=== PATIENT | female | born 1945 | race African-American/Black ===

== ENCOUNTER 2017-12-16 09:39 | Outpatient (CLI) | payer MEDICARE ==
--- NOTE | 2017-12-16 11:08 | Mammography Report ---
BILATERAL MAMMOGRAM: FINDINGS: The breast tissue is heterogeneously dense, which could obscure detection of small masses (approximately 50%-75% glandular). No mass, distortion, suspicious calcification, or skin change is seen. No significant change when compared to exams dating back to November 2015. CAD was utilized. IMPRESSION: Negative mammogram. There is no mammographic evidence of malignancy. RECOMMENDATION: Follow-up per ACS guidelines. BI-RADS CATEGORY: 1 = Negative ACR BI-RADS MAMMOGRAPHIC CODES: 0 = Needs additional imaging evaluation; 1 = Negative; 2 = Benign; 3 = Probably benign; 4 = Suspicious; 5 = Malignant; 6 = Known biopsy-proven malignancy COMMENT: 1. Dense breast tissue, i.e., adenosis, fibrocystic changes, etc., may obscure an underlying neoplasm. 2. Approximately 10% of cancers are not detected with mammography. 3. A negative mammography report should not delay biopsy if a clinically suspicious mass is present. COMMENT: Patient follow-up letters are generated in [employer].
== END 2017-12-16 09:40 | disposition home or self-care (01) ==
LOC: MAMMO 09:39
PROVIDERS: ATTEND Family Medicine
DX: Z12.31 Encounter for screening mammogram for malignant neoplasm of breast (principal)
CPT/HCPCS: 77067

== ENCOUNTER 2018-12-18 09:23 | Outpatient (CLI) | payer MEDICARE ==
--- NOTE | 2018-12-18 15:12 | Mammography Report ---
BILATERAL DIGITAL SCREENING MAMMOGRAM with CAD: 12/18/18 09:23:00 CLINICAL: Routine screening. COMPARISON:11/08/16 FINDINGS: The breasts are heterogeneously dense, which may obscure small masses. No mass, architectural distortion or suspicious calcifications. IMPRESSION: No mammographic evidence of malignancy. BI-RADS CATEGORY: 1 - - Negative RECOMMENDATION: Routine mammographic screening in one year. COMMENT: Patient follow-up letters are generated by our [email or web address] application.
== END 2018-12-18 09:24 | disposition home or self-care (01) ==
LOC: MAMMO 09:23
PROVIDERS: ATTEND Family Medicine
DX: Z12.31 Encounter for screening mammogram for malignant neoplasm of breast (principal)
CPT/HCPCS: 77067

== ENCOUNTER 2019-02-08 10:25 | Emergency (ER) | payer MEDICARE ==
[2019-02-08] MEDS ORDERED: NACL 0.9% 1000 ML 1,000 ML IV ONE (11:31)
[2019-02-08] MEDS ORDERED: ZOFRAN IV ONE (11:31)
[2019-02-08] MEDS ORDERED: MORPHINE IV ONE (11:31)
[2019-02-08 11:35] LABS: Basophils % (Auto) 0.2 % (0.0-1.8); Hematocrit 44.6 % (30.3-42.9); Lymphocytes # (Auto) 0.9 K/mm3 (1.2-5.4); Lymphocytes % (Auto) 5.5 % (13.4-35.0); Mean Corpuscular HGB Conc 31 % (30-34); Mean Corpuscular Volume 70 fl (79-97); Monocytes # (Auto) 0.8 K/mm3 (0.0-0.8); Monocytes % (Auto) 5.2 % (0.0-7.3); Platelet Count 213 K/mm3 (140-440); Red Blood Count 6.35 M/mm3 (3.65-5.03); Red Cell Distribution Width 15.2 % (13.2-15.2)
--- NOTE | 2019-02-08 11:35 | Emergency Department Report ---
ED Abdominal Pain HPI - General Chief Complaint: GI Bleed Stated Complaint: DIARRHEA/DEHYDRATED/WEAK Time Seen by Provider: 02/08/19 11:26 Source: patient Mode of arrival: Ambulatory Limitations: No Limitations - History of Present Illness Initial Comments: Patient is 73 years old female with history of hypertension and diabetes and polyp removal from the colon last year. Patient presented to the ER complaining of fever and chills for the last 2 days associated with black diarrhea. Patient denied any vomiting, hematemesis, hemoptysis or hematuria. MD Complaint: abdominal pain -: days(s) (2) Location: LLQ Radiation: none Migration to: no migration Quality: cramping - Related Data Home Medications Medication Instructions Recorded Confirmed Last Taken Fluticasone [Flonase] 1 spray NS QDAY 02/08/19 02/08/19 Unknown Insulin Detemir [Levemir Flextouch] 5 unit SQ QHS 02/08/19 02/08/19 Unknown Losartan [Cozaar] 25 mg PO QDAY 02/08/19 02/08/19 Unknown Metformin HCl [metFORMIN] 1,000 mg PO BID 02/08/19 02/08/19 Unknown Omeprazole 40 mg PO DAILY 02/08/19 02/08/19 Unknown amLODIPine [Norvasc] 10 mg PO DAILY 02/08/19 02/08/19 Unknown Allergies Allergy/AdvReac Type Severity Reaction Status Date / Time No Known Allergies Allergy Verified 02/08/19 10:27 ED Review of Systems ROS: Stated complaint: DIARRHEA/DEHYDRATED/WEAK Other details as noted in HPI Comment: All other systems reviewed and negative Constitutional: chills, fever ENT: denies: throat pain, hearing loss Cardiovascular: palpitations. denies: chest pain Gastrointestinal: abdominal pain, diarrhea. denies: nausea, vomiting, constipation, hematemesis, melena, hematochezia Genitourinary: denies: urgency, dysuria, frequency, hematuria, discharge, abnormal menses Musculoskeletal: denies: back pain Neurological: denies: headache, weakness, numbness, paresthesias, confusion ED Past Medical Hx - Past Medical History Hx Hypertension: Yes Hx Diabetes: Yes - Social History Smoking Status: Never Smoker Substance Use Type: None - Medications Home Medications: Home Medications Medication Instructions Recorded Confirmed Last Taken Type Fluticasone [Flonase] 1 spray NS QDAY 02/08/19 02/08/19 Unknown History Insulin Detemir [Levemir Flextouch] 5 unit SQ QHS 02/08/19 02/08/19 Unknown History Losartan [Cozaar] 25 mg PO QDAY 02/08/19 02/08/19 Unknown History Metformin HCl [metFORMIN] 1,000 mg PO BID 02/08/19 02/08/19 Unknown History Omeprazole 40 mg PO DAILY 02/08/19 02/08/19 Unknown History amLODIPine [Norvasc] 10 mg PO DAILY 02/08/19 02/08/19 Unknown History ED Physical Exam - General Limitations: No Limitations General appearance: alert, in no apparent distress - Head Head exam: Present: atraumatic, normocephalic, normal inspection - Eye Eye exam: Present: normal appearance, PERRL - ENT ENT exam: Present: normal exam, normal orophraynx, mucous membranes moist - Neck Neck exam: Present: normal inspection, full ROM. Absent: tenderness, meningismus, lymphadenopathy, thyromegaly - Respiratory Respiratory exam: Present: normal lung sounds bilaterally - Cardiovascular Cardiovascular Exam: Present: tachycardia, normal heart sounds. Absent: systolic murmur, diastolic murmur, rubs - GI/Abdominal GI/Abdominal exam: Present: soft, tenderness (left lower quadrant tenderness), normal bowel sounds. Absent: distended, guarding, rebound, rigid, organomegaly, mass, bruit, pulsatile mass, hernia - Extremities Exam Extremities exam: Present: normal inspection, full ROM, normal capillary refill - Back Exam Back exam: Present: normal inspection, full ROM. Absent: tenderness, CVA tenderness (R), CVA tenderness (L), muscle spasm, paraspinal tenderness, vertebral tenderness - Neurological Exam Neurological exam: Present: alert, oriented X3, CN II-XII intact, normal gait, reflexes normal - Skin Skin exam: Present: warm, intact, normal color ED Course Vital Signs 02/08/19 02/08/19 10:45 15:24 Temperature 99.6 F 98.7 F Pulse Rate 103 H 95 H Respiratory 18 20 Rate Blood Pressure 135/74 Blood Pressure 132/78 [Left] O2 Sat by Pulse 95 100 Oximetry ED Medical Decision Making - Lab Data Result diagrams: 02/08/19 11:09 02/08/19 11:09 - Radiology Data Radiology results: report reviewed CT abdomen and pelvis showed no acute abnormality except for air fluid in the colon consistent with diarrhea. - Medical Decision Making Patient is 73 years old female with history of hypertension and diabetes and polyp removal from the colon last year. Patient presented to the ER complaining of fever and chills for the last 2 days associated with black diarrhea. Patient denied any vomiting, hematemesis, hemoptysis or hematuria. Patient stated that she is feeling much better. Patient received normal saline, morphine and Zofran. Patient also received Zosyn. Found to have a white blood cells of 16,000. CT abdomen and pelvis was no acute abnormality except for air-fluid in the colon consistent with diarrhea. Patient discharged home with Augmentin and Flagyl and advised to follow-up with her primary care physician in the next 2-3 days and to return to the ER if symptoms are not improved. Critical care attestation.: If time is entered above; I have spent that time in minutes in the direct care of this critically ill patient, excluding procedure time. ED Disposition Clinical Impression: Abdominal pain, Colitis Disposition: - TO HOME OR SELFCARE Is pt being admited?: No Condition: Stable Instructions: Abdominal Pain (ED), Infectious Colitis (ED) Referrals: GABRIELLA RENNER MD [Primary Care Provider] - 3-5 Days Forms: Accompanied Note
[2019-02-08 11:56] LABS: BUN/Creatinine Ratio 19; Blood Urea Nitrogen 15 mg/dL (7-17); Calcium 8.5 mg/dL (8.4-10.2); Hemolysis Index 19
[2019-02-08] MEDS ORDERED: ZOSYN/NS 3.375GM/50ML 3.375 GM/50 ML BAG IV ONE (12:07)
[2019-02-08 12:10] LABS: Alanine Aminotransferase 81 units/L (7-56); Albumin 3.8 g/dL (3.9-5)
[2019-02-08 12:11] LABS: Bilirubin,Direct < 0.2 mg/dL (0-0.2)
[2019-02-08 15:26] VITALS: BP 132/78
--- NOTE | 2019-02-08 16:28 | Cat Scan Report ---
PROCEDURE: CT ABDOMEN PELVIS W CON TECHNIQUE: Computerized axial tomography of the abdomen and pelvis was performed after the IV inject ion of iodinated nonionic contrast. CT DOSE LENGTH PRODUCT: 2477.9 mGycm HISTORY: abdominal pain COMPARISONS: None . FINDINGS: Visualized lower thorax: No significant abnormality. Liver: Normal size and attenuation. Spleen: Normal size and attenuation. Gallbladder and biliary system: Normal. Pancreas: Normal. Adrenals: Normal. Kidneys: Normal. GI tract: There are air-fluid levels throughout the colon, which can be seen with a diarrhea produci ng illness. No bowel obstruction or inflammation is seen. Small hiatal hernia . Lymph nodes and mesentery: Normal. Vasculature: Normal.. Bladder: Normal. Reproductive organs: Normal. Peritoneum: No free fluid. Musculoskeletal structures: There are degenerative disc changes at L4-5 and L5-S1. Other: None . IMPRESSION: Air-fluid levels throughout the colon can be seen with a diarrhea producing illness. No acute inflamm atory process is seen . This document is electronically signed by Sandhya Fuentes MD., February 08 2019 04:26:15 PM ET
== END 2019-02-08 17:54 | disposition home or self-care (01) ==
LOC: ED 10:25
DX: K52.9 Noninfective gastroenteritis and colitis, unspecified (principal); I10 Essential (primary) hypertension; E11.9 Type 2 diabetes mellitus without complications; Z79.4 Long term (current) use of insulin; Z79.899 Other long term (current) drug therapy
CPT/HCPCS: 36415; 74177; 80048; 80076; 83690; 85025; 87040; 96361; 96365; 96375; 99284; J2270; J2405; J2543; J7030; Q9967